=== PATIENT | male | born 1965 | race Caucasian/White ===

== ENCOUNTER 2017-04-21 11:38 | Emergency (ER) | payer SELFPAY ==
[2017-04-21 12:34] LABS: A/G RATIO 1.3; ALBUMIN 4.3 g/dL (3.5-5.0); ALKALINE PHOSPHATASE 81 U/L (38-126); ALT 31 U/L (21-72); AST 28 U/L (17-59); BILIRUBIN, TOTAL 1.1 mg/dL (0.2-1.3); BLOOD UREA NITROGEN 18 mg/dL (9-20); CALCIUM 9.3 mg/dL (8.4-10.2); CHLORIDE 105 mmol/L (98-107); EST GLOMERULAR FILTRATION RATE > 60 mL/min; GLUCOSE 115 mg/dL (70-100); POTASSIUM 3.7 mmol/L (3.5-5.1); SODIUM 136 mmol/L (137-145); TOTAL PROTEIN 7.5 g/dL (6.3-8.2)
[2017-04-21 12:50] LABS: HEMATOCRIT 40.8 % (42.0-54.0); HEMOGLOBIN 14.1 g/dL (14.0-18.0); MEAN CELL VOLUME 91.8 fL (80.0-100.0); MEAN CORPUS. HGB CONCENTRATION 34.7 g/dL (32.0-36.0); MEAN CORPUSCULAR HEMOGLOBIN 31.8 pg (29.0-35.0); MEAN PLATELET VOLUME 7.4 fL (7.4-10.4); PLATELET COUNT 273 X 10^3uL (130-440); RED BLOOD COUNT 4.44 X 10^6uL (4.20-6.10); RED CELL DISTRIBUTION WIDTH 12.3 % (11.5-14.5); WHITE BLOOD COUNT 12.6 X 10^3uL (3.9-10.7)
[2017-04-21 12:51] LABS: BAND% (Manual) 2 % (0.0-1.0); LYMPHOCYTE % (Manual) 22 % (20.0-40.0); MONOCYTE % (Manual) 8 % (2.0-10.0); NEUTROPHIL % (Manual) 68 % (54.0-75.0)
[2017-04-21 12:52] LABS: PLATELET ESTIMATE ADEQUATE
--- NOTE | 2017-04-21 13:00 | RADIOLOGY REPORT ---
HISTORY: Dizziness, fever. COMPARISON: None. FINDINGS: 2 views of the chest obtained. There is no consolidation. There is no pleural effusion. There is no pneumothorax. The cardiomediastinal silhouette is normal. There is no abnormality of the pulmonar y vessels. There is no focal lung parenchymal nodule. There is no bone lesion. IMPRESSION: Normal chest. Final Electronic Signature: This report was electronically signed by Triston Arce MD on 04/21/2017 12:58 PM. nam /
[2017-04-21] MEDS ORDERED: AMPICILLIN/SULBACTAM 3 GM/10 ML VIAL ONE (13:43)
[2017-04-21] MEDS ORDERED: NORMAL SALINE 250 ML IV ONE (13:44)
--- NOTE | 2017-04-21 15:32 | ER PHYSICIAN DOCUMENTATION ---
Physician Documentation [facility] Name:Pollo Marquez Age:51 yrs Sex:Male :1965 Arrival Date:04/21/2017 Time:11:38 Bed3 Private MD: Alexys Christy Disposition: 04/23 05:16 Chart complete. tl1 Disposition: 04/21/17 15:23 Discharged to Home/Self Care. Impression: Cellulitis of Hand. - Condition is Good. - Discharge Instructions: CELLULITIS. - Prescriptions for Augmentin XR 1,000- 62.5 mg Oral Tablet Sustained Release 12 hr - take 2 tablet by ORAL route every 12 hours for 10 days; 40 tablet. - Medical Reconciliation form form. - Follow up: Wesly Mendes DO, Pranav Monaco MD; When: 1 - 2 days; Reason: Recheck today's complaints, Continuance of care. - Problem is new. - Symptoms are unchanged. HPI: 04/21 11:56 This 51 yrs old Male presents to ER via Private Vehicle with complaints of tl1 Dizziness. 12:00 1 day h/o malaise, fatigue, chills and thirst, with some lightheadedness on standing. tl1 He initially had no other complaints. Later in his ED stay when Maddy Td noted his left hand was red, swollen and tender, while drawing his blood and starting an IV, he remembered that about 7 days ago he was bitten by a dog, but he didn't notice that the skin was broken. He subsequently sustained an abrasion to the dorsum of that hand 2 or 3 days ago but he thinks the redness and swelling started prior to that.. Historical: - Allergies: Septra; - Home Meds: 1. None - PMHx: None; - PSHx: None; - Tetanus: < 10 years. - Ebola Screening: : Patient negative for fever greater than or equal to 101.5 degrees Fahrenheit, and additional compatible Ebola Virus Disease symptoms. - Immunization history: Pneumococcal vaccine is up to date, Flu Vaccine None. - Social history: Smoking status: Patient uses tobacco products, current every day smoker. ROS: 12:00 ENT: Negative for nasal discharge, rhinorrhea, sinus congestion, sinus pain, sore tl1 throat, dental pain. 12:00 Cardiovascular: Negative for chest pain, edema, orthopnea, palpitations. 12:00 Respiratory: Negative for cough, dyspnea on exertion, hemoptysis, pleurisy, shortness of breath, sputum production, wheezing. 12:00 Abdomen/GI: Negative for abdominal pain, nausea, vomiting, diarrhea, hematemesis, black/tarry stool, rectal bleeding. 12:00 : Negative for urinary symptoms. 12:00 Skin: Positive for cellulitis, erythema, swelling, Left hand, Negative for rash. 12:00 Neuro: Negative for gait disturbance, headache, speech changes, syncope, near syncope, weakness. Exam: 12:00 Constitutional: This is a well developed, well nourished patient who is awake, alert, tl1 and in no acute distress. Head/Face: Normocephalic, atraumatic. ENT: Nares patent. No nasal discharge, no septal abnormalities noted. Tympanic membranes are normal and external auditory canals are clear. Oropharynx with no redness, swelling, or masses, exudates, or evidence of obstruction, uvula midline. Mucous membranes moist. Neck: Trachea midline, no thyromegaly or masses palpated, and no cervical lymphadenopathy. Supple, full range of motion without nuchal rigidity, or vertebral point tenderness. No Meningismus. Cardiovascular: Regular rate and rhythm with a normal S1 and S2. No gallops, murmurs, or rubs. Normal PMI, no JVD. No pulse deficits. Respiratory: Lungs have equal breath sounds bilaterally, clear to auscultation and percussion. No rales, rhonchi or wheezes noted. No increased work of breathing, no retractions or nasal flaring. 12:00 Abdomen/GI: Soft, non-tender, with normal bowel sounds. No distension or tympany. No tl1 guarding or rebound. No evidence of tenderness throughout. 12:00 Back: CVA tenderness, is absent. 12:00 Musculoskeletal/extremity: Extremities: grossly normal except: noted in the left hand: erythema, swelling, tenderness, ROM: intact in all extremities, full active range of motion, with minimal discomfrot. 12:00 Neuro: Orientation: is normal, Mentation: is normal, Memory: is normal, Cranial nerves: grossly normal, Cerebellar function: not tested, Gait: is steady, at a normal pace, without difficulty, appropriate for age. Vital Signs: 11:45 BP 152 / 86; Pulse 75; Resp 17; Temp 98.2(O); Pulse Ox 93% on R/A; Weight 102.06 kg; rh Height 6 ft. 3 in. (190.50 cm); Pain 8/10; 12:01 BP 142 / 89 Supine; Pulse 80; Resp 16; lc 12:02 BP 163 / 102 Standing; Pulse 81; Resp 16; lc 12:43 Pulse 63; Resp 16; lc 15:31 BP 137 / 82; Pulse 66; Resp 15; Pulse Ox 95% on R/A; Pain 0/10; rh 11:45 Body Mass Index 28.12 (102.06 kg, 190.50 cm) rh MDM: 11:56 Patient medically screened. tl1 12:49 ECG:. tl1 14:00 Data reviewed: vital signs, nurses notes, lab test result(s), CBC, radiologic studies, tl1 plain films, and as a result, I will discharge patient. Test interpretation: by ED physician or midlevel provider: plain radiologic studies. Counseling: I had a detailed discussion with the patient and/or guardian regarding: the historical points, exam findings, and any diagnostic results supporting the discharge/admit diagnosis, lab results, the need for outpatient follow up, to return to the emergency department if symptoms worsen or persist or if there are any questions or concerns that arise at home. Response to treatment: There is no appreciated change of the patient's symptoms at this time, and as a result, I will discharge patient. Physician consultation: Wesly Mendes DO was called at 14:30, was contacted at 14:30, regarding outpatient follow-up, and will see patient in office, tomorrow. 04/21 12:42 Order name: COMPREHENSIVE METABOLIC PANEL; Complete Time: 04:55 EDMS 04/23 04:54 Interpretation: Normal. tl1 04/21 12:43 Order name: BNP,NT-PRO; Complete Time: 04:55 EDMS 04/23 04:54 Interpretation: Abnormal: BNP,NT-PRO 262. tl1 04/21 12:51 Order name: CBC WITHOUT A DIFFERENTIAL; Complete Time: 04:55 EDMS 04/23 04:54 Interpretation: WHITE BLOOD COUNT 12.6; HEMOGLOBIN 14.1; HEMATOCRIT 40.8; PLATELET tl1 COUNT 273. 04/21 12:53 Order name: MANUAL DIFFERENTIAL; Complete Time: 04:55 EDMS 04/23 04:54 Interpretation: NEUTROPHIL % (Manual) 68; BAND% (Manual) 2; LYMPHOCYTE % (Manual) 22. tl1 04/21 13:01 Order name: CXR 2V [id number]; Complete Time: 04:55 EDMS 04/23 04:54 Interpretation: Normal per my read, and the radiologist's. tl1 04/21 12:10 Order name: EKG - 12 Lead; Complete Time: 12:20 tl1 04/23 04:55 Interpretation: Normal: SEE NOTE. tl1 EC:13 Rate is 58 beats/min. Rhythm is regular. QRS [place] is Normal. OK interval is shortened tl1 at 109 msec. QRS interval is prolonged at 116 msec. QT interval is normal at 442 msec. No Q waves. T waves are Normal. No ST changes noted. Clinical impression: NSR with short OK interval, and incomplete RBBB. Interpreted by me. Reviewed by me. Dispensed Medications: 13:30 Drug: Unasyn 3 grams; Route: IVPB; Infused Over: 30 mins; Site: left antecubital; 15:00 Follow up: IV Status: Completed infusion; IV Intake: 250ml Signatures: Maddy Appiah RN RN Alexys Guzman MD MD 1 Ora Nichols
--- NOTE | 2017-04-21 15:32 | ER NURSING DOCUMENTATION ---
Nurse's Notes [facility] Name:Pollo Marquez Age:51 yrs Sex:Male :1965 Arrival Date:04/21/2017 Time:11:38 Bed3 Private MD: Diagnosis:Cellulitis of Hand Presentation: 04/21 11:42 Acuity: TERRANCE 3 rh 11:45 Presenting complaint: Patient states: C/O CHILLS, INCREASED THIRST, BODY ACHES AND SL lc CHRISTENSEN FOR LAST DAY. NO ST, COUGH, RASH. HAS BEEN DOING A LOT OF LIFTING LATELY WITH MOVING. Transition of care: Home. 11:45 Method Of Arrival: Private Vehicle Triage Assessment: 11:47 General: Appears in no apparent distress. Pain: Complains of pain in BODY ACHES Pain At worst was 8 out of 10 on a pain scale. Quality of pain is described as aching. Neuro: Level of Consciousness is awake, alert, Oriented to person, place, time, event. Respiratory: Airway is patent Respiratory effort is even, unlabored, Respiratory pattern is regular, symmetrical. Derm: Skin is pink, warm & dry. Musculoskeletal: Circulation, motion, and sensation intact Capillary refill < 3 seconds Range of motion intact in all extremities. 11:49 General: Behavior is cooperative. Historical: - Allergies: Septra; - Home Meds: 1. None - PMHx: None; - PSHx: None; - Tetanus: < 10 years. - Ebola Screening: : Patient negative for fever greater than or equal to 101.5 degrees Fahrenheit, and additional compatible Ebola Virus Disease symptoms. - Immunization history: Pneumococcal vaccine is up to date, Flu Vaccine None. - Social history: Smoking status: Patient uses tobacco products, current every day smoker. Screenin:49 Infectious Disease Risk None. Abuse screen: Denies threats or abuse. Denies injuries lc from another. Nutritional screening: No deficits noted. Assessment: 11:48 See Triage Assessment done by same RN. Vital Signs: 11:45 BP 152 / 86; Pulse 75; Resp 17; Temp 98.2(O); Pulse Ox 93% on R/A; Weight 102.06 kg; rh Height 6 ft. 3 in. (190.50 cm); Pain 8/10; 12:01 BP 142 / 89 Supine; Pulse 80; Resp 16; lc 12:02 BP 163 / 102 Standing; Pulse 81; Resp 16; lc 12:43 Pulse 63; Resp 16; lc 15:31 BP 137 / 82; Pulse 66; Resp 15; Pulse Ox 95% on R/A; Pain 0/10; rh 11:45 Body Mass Index 28.12 (102.06 kg, 190.50 cm) ED Course: 11:40 Patient arrived in ED. cj 11:42 Triage completed. rh 11:45 Maddy Appiah RN is Primary Nurse. lc 11:49 Valuables Remains with patient Patient has correct armband on for positive lc identification. Placed in gown. Bed in low position. Call light in reach. 11:56 Alexys Vela MD is Attending Physician. tl1 12:13 EKG done. (by ED staff). Reviewed by Alexys Vela MD. rh 12:17 Patient moved to radiology. harmony 12:21 Labs drawn. (by ED staff). Sent per order to lab. Inserted peripheral IV: 20 gauge in lc left antecubital area and blood collected. 12:24 Patient moved back from radiology. pm1 15:17 Wesly Mendes DO, Pranav Monaco MD is Referral Physician. tl1 Administered Medications: 13:30 Drug: Unasyn 3 grams; Route: IVPB; Infused Over: 30 mins; Site: left antecubital; lc 15:00 Follow up: IV Status: Completed infusion; IV Intake: 250ml lc Intake: 15:00 IV: 250ml; Total: 250ml. lc Outcome: 15:23 Discharge ordered by . tl1 15:31 Discharged to home ambulatory. 15:31 Condition: improved 15:31 Discharge Assessment: Patient awake, alert and oriented x 3. No cognitive and/or functional deficits noted. Patient verbalized understanding of disposition instructions. 15:31 Discharge instructions given to patient, Instructed on discharge instructions, follow up and referral plans. Demonstrated understanding of instructions, medications, Prescriptions given X 1. 15:31 IV D/Truong 15:31 Patient left the ED. 04/22 17:27 Discharge F/U Call: Spoke with: patient. other: Name: pt is feeling better. pt is st still waiting for the full abx he picked up a few but the pharmacy is suppose to call him today when the rest are available. pt has no questions or concerns. Signatures: Trudy Dietz, RN RN Maddy Flor RN RN jos [place], [place] pm1 Alexys Vela MD MD tl1 Simone, Leena Spaulding
== END 2017-04-21 15:32 | disposition home or self-care (01) ==
LOC: ER 11:38
DX: R42 Dizziness and giddiness (principal); L03.114 Cellulitis of left upper limb; I45.19 Other right bundle-branch block; F17.210 Nicotine dependence, cigarettes, uncomplicated
CPT/HCPCS: 71020; 80053; 83880; 85007; 85027; 93005; 96365; 99284; J0295; J7050

== ENCOUNTER 2017-05-16 19:03 | Emergency (ER) | payer OTHER ==
--- NOTE | 2017-05-16 20:33 | ER PHYSICIAN DOCUMENTATION ---
Physician Documentation [facility] Name:Pollo Marquez Age:51 yrs Sex:Male :1965 Arrival Date:05/16/2017 Time:19:03 Bed3 Private MD:Kelechi Alves ED, John Disposition: 05/16/17 20:16 Discharged to Home/Self Care. Impression: Dog Bite. - Condition is Good. - Discharge Instructions: DOG BITE. - Prescriptions for Doxycycline Hyclate 100 mg Oral Tablet - take 1 tablet by ORAL route every 12 hours; 20 tablet. - Medical Reconciliation form form. - Follow up: Kelechi Alves; When: As needed; Reason: Continuance of care. - Problem is new. - Symptoms have improved. HPI: 05/16 20:54 This 51 yrs old Male presents to ER via Walk In with complaints of Dog Bite - jm FACE AND HAND. 20:54 The patient was bitten on the neck and right sternocleidomastoid, by a dog, as a result jm of being attacked by the animal. Onset: The symptom(s)/episode began/occurred just prior to arrival. Animal information: Animal's vaccinations are up to date. Associated signs and symptoms: Pertinent positives: tenderness, small lacs. The patient has not experienced similar symptoms in the past. Pt's dog is 15 years old and, pt was worried it was about to get run over, so he quickly picked it up off the ground and it freaked out and bit him in the R neck area. Pt just has 3 small lacs, but came in for abx. . Historical: - Allergies: Septra; - Home Meds: 1. None - PMHx: NONE; Cellulitis of Hand (April 21, 2017); - PSHx: NONE; - Tetanus: < 10 years. - Ebola Screening: : Patient negative for fever greater than or equal to 101.5 degrees Fahrenheit, and additional compatible Ebola Virus Disease symptoms. Patient denies exposure to infectious person. Patient denies travel to an Ebola-affected area in the 21 days before illness onset. No symptoms or risks identified at this time. . - Immunization history: Flu Vaccine < 1 year. - Social history: Smoking status: Patient states was never smoker of tobacco. ROS: 20:58 Skin: Positive for laceration(s). betzaida Exam: 20:58 Constitutional: The patient appears alert, awake. 20:58 Skin: cellulitis, is not appreciated, injury, laceration(s), the wound is approximately .5 cm(s), with a depth of .5 cm(s), of the #3 of them to R mandibular jaw/neck area- all small. . 20:58 Psych: Behavior/mood is pleasant, cooperative. Vital Signs: 19:09 BP 130 / 97; Pulse 78; Resp 16; Temp 98.9; Pulse Ox 96% ; Weight 81.65 kg; Height 6 ft. jt 3 in. (190.50 cm); Pain 8/10; 19:09 Body Mass Index 22.50 (81.65 kg, 190.50 cm) jt MDM: 19:07 Patient medically screened. 20:59 Differential diagnosis: superficial laceration. Rabies Status: Rabies immunization is not indicated. Data reviewed: vital signs, nurses notes, and as a result, I will discharge patient, administer antibiotics. Counseling: I had a detailed discussion with the patient and/or guardian regarding: the historical points, exam findings, and any diagnostic results supporting the discharge/admit diagnosis. 20:59 ED course: steri-stripped by Tech. betzaida Dispensed Medications: 20:26 Drug: Doxycycline 100 mg; Route: PO; bw2 20:26 Follow up: Response: No adverse reaction bw2 20:26 Drug: Percocet Tablet (5 mg-325 mg) 6 tabs; Route: PO; bw2 20:26 Follow up: Response: Pharmacy closed - take home med pack bw2 Signatures: Jass Goins MD MD jm Wisely, Beth bw2
--- NOTE | 2017-05-16 20:33 | ER NURSING DOCUMENTATION ---
Nurse's Notes [facility] Name:Pollo Marquez Age:51 yrs Sex:Male :1965 Arrival Date:05/16/2017 Time:19:03 Bed3 Private MD:Kelechi Alves Diagnosis:Dog Bite Presentation: 05/16 19:06 Acuity: TERRANCE 3 bw2 19:09 Presenting complaint: Patient states: he was bite by his own dog. bite osborne to left bw2 side of face and left hand. pt states dog is up to date on all shots. Transition of care: patient was not received from another setting of care. 19:09 Method Of Arrival: Walk In [facility] Triage Assessment: 19:11 Bite description: bite sustained to right submandibular area and right bw2 sternocleidomastoid by a dog, animal information: Animal control has been notified. General: Appears in no apparent distress, Behavior is anxious, appropriate for age. Pain: Complains of pain in right submandibular area and right sternocleidomastoid. Neuro: No deficits noted. 20:32 Bite description: animal information: vaccination(s) is current. 2 Historical: - Allergies: Septra; - Home Meds: 1. None - PMHx: NONE; Cellulitis of Hand (April 21, 2017); - PSHx: NONE; - Tetanus: < 10 years. - Ebola Screening: : Patient negative for fever greater than or equal to 101.5 degrees Fahrenheit, and additional compatible Ebola Virus Disease symptoms. Patient denies exposure to infectious person. Patient denies travel to an Ebola-affected area in the 21 days before illness onset. No symptoms or risks identified at this time. . - Immunization history: Flu Vaccine < 1 year. - Social history: Smoking status: Patient states was never smoker of tobacco. Screenin:13 Infectious Disease Risk None. Abuse screen: Denies threats or abuse. Nutritional 2 screening: No deficits noted. Assessment: 19:13 See Triage Assessment done by same RN. bw2 19:13 Derm: Skin is healthy with good turgor, Skin is pink, warm & dry. 2 Vital Signs: 19:09 BP 130 / 97; Pulse 78; Resp 16; Temp 98.9; Pulse Ox 96% ; Weight 81.65 kg; Height 6 ft. jt 3 in. (190.50 cm); Pain 8/10; 19:09 Body Mass Index 22.50 (81.65 kg, 190.50 cm) jt ED Course: 19:05 Patient arrived in ED. ma1 19:05 Kelechi Alves is Private Physician. ma1 19:05 Monika Melendrez is Primary Nurse. bw2 19:06 Triage completed. bw2 19:07 Jass Goins MD is Attending Physician. 19:13 Valuables Remains with patient Patient has correct armband on for positive bw2 identification. Side rails up X2. 19:19 Notified police department of dog bite. bw2 20:15 Kelechi Alves is Referral Physician. betzaida 20:31 Wound care to puncture located on neck and right sternocleidomastoid and right bw2 submandibular area was Irrigation Patient tolerated well. Administered Medications: 20:26 Drug: Doxycycline 100 mg; Route: PO; bw2 20:26 Follow up: Response: No adverse reaction bw2 20:26 Drug: Percocet Tablet (5 mg-325 mg) 6 tabs; Route: PO; bw2 20:26 Follow up: Response: Pharmacy closed - take home med pack bw2 Outcome: 20:16 Discharge ordered by . 20:32 Discharged to home ambulatory. bw2 20:32 Condition: good 20:32 Discharge Assessment: Patient awake, alert and oriented x 3. No cognitive and/or functional deficits noted. Patient verbalized understanding of disposition instructions. 20:32 Discharge instructions given to patient, Instructed on discharge instructions, follow up and referral plans. medication usage, Demonstrated understanding of instructions, medications, Prescriptions given X 1. 20:32 Patient left the ED. bw2 05/17 14:33 Discharge F/U Call: Unable to reach: no answer st Signatures: Trudy Dietz, RN Jass Kramer MD MD jm Tennant, Joanne jt Wisely, Beth bw2 PhilipYary moniqueissa ma1
[2017-05-16] MEDS ORDERED: DOXYCYCLINE 100 MG CAPSULE PO ONE (20:34)
[2017-05-16] MEDS ORDERED: oxyCODONE/APAP 5/325 MG PREPAC 1 TAB TABLET PO ONE (20:38)
== END 2017-05-16 20:33 | disposition home or self-care (01) ==
LOC: ER 19:03
DX: S10.87XA Other superficial bite of other specified part of neck, initial encounter (principal); W54.0XXA Bitten by dog, initial encounter; Y92.89 Other specified places as the place of occurrence of the external cause; Y93.K9 Activity, other involving animal care
CPT/HCPCS: 99283

== ENCOUNTER 2017-05-18 11:18 | Emergency (ER) | payer OTHER ==
[2017-05-18] MEDS ORDERED: AMPICILLIN/SULBACTAM 3 GM/10 ML VIAL ONE (12:05)
[2017-05-18] MEDS ORDERED: KETOROLAC TROMETHAMINE 30 MG/ML VIAL ONE (12:06)
[2017-05-18] MEDS ORDERED: NORMAL SALINE 250 ML IV ONE (12:06)
--- NOTE | 2017-05-18 13:02 | ER NURSING DOCUMENTATION ---
Nurse's Notes [facility] Name:Pollo Marquez Age:51 yrs Sex:Male :1965 Arrival Date:05/18/2017 Time:11:18 Bed1 Private MD: Diagnosis:Cellulitis of Neck Presentation: 05/18 11:24 Acuity: TERRANCE 4 11:27 Presenting complaint: Patient states: DOG BITE TO NECK 3 DAYS AGO. STERISTRIPPED AND lc BUT ON ABX AND GIVEN PERCOCET. STILL C/O PAIN AND SWELLING TO AREA, NO REDNESS OR DRAINAGE. Transition of care: Home. Notified ED Physician of patient's arrival and CC. 11:27 Method Of Arrival: Walk In Triage Assessment: 11:34 Bite description: SEE PREVIOUS RECORD. General: Appears in no apparent distress, lc uncomfortable, Behavior is cooperative. Pain: Complains of pain in right submandibular area Pain currently is 9 out of 10 on a pain scale. At worst was 10 out of 10 on a pain scale. Quality of pain is described as throbbing. Neuro: Level of Consciousness is awake, alert, Oriented to person, place, time, event. 11:36 Musculoskeletal: Circulation, motion, and sensation intact. Injury Description: lc Puncture is WELL HEALED, NO RED OR STREAKING. 12:59 Bite description: by a dog, animal information: see previous chart. Historical: - Allergies: Septra; - Home Meds: 1. None - PMHx: NONE; Cellulitis of Hand (April 21, 2017); Dog Bite (May 16, 2017); - PSHx: NONE; - Tetanus: < 10 years. - Ebola Screening: : Patient denies travel to an Ebola-affected area in the 21 days before illness onset. No symptoms or risks identified at this time. . - Immunization history: Flu Vaccine >1 year. - Social history: Smoking status: Patient uses tobacco products, current every day smoker. Screenin:37 Infectious Disease Risk None. Abuse screen: Denies threats or abuse. Denies injuries lc from another. Nutritional screening: No deficits noted. Assessment: 11:37 See Triage Assessment done by same RN. 12:17 Reassessment: Patient appears in no apparent distress at this time. NO S/S OF RX, IV lc ABX INFUSING WELL.. Vital Signs: 11:24 BP 135 / 82 LA Sitting (auto/reg); Pulse 80 LA; Resp 16 S; Temp 98.1(O); Pulse Ox 94% em3 on R/A; Weight 102.06 kg (R); Height 6 ft. 3 in. (190.50 cm) (R); Pain 10/10; 12:58 Resp 16; Pain 3/10; lc 11:24 Body Mass Index 28.12 (102.06 kg, 190.50 cm) em3 ED Course: 11:20 Patient arrived in ED. em3 11:24 Triage completed. lc 11:25 Valuables Remains with patient Patient has correct armband on for positive em3 identification. Bed in low position. Call light in reach. 11:29 Alexys Vela MD is Attending Physician. tl1 11:38 Maddy Appiah, SAVANNAH is Primary Nurse. lc 11:44 Jon Ramírez MD is Referral Physician. tl1 11:45 Missed attempts: 22 gauge X 1 in left antecubital area, Bleeding controlled, band aid em3 applied, catheter tip intact. 11:51 Inserted saline lock: 22 gauge in left hand. em3 Administered Medications: 11:58 Drug: Toradol 15 mg; Route: IVP; Infused Over: 2 mins; Site: left hand; lc 12:57 Follow up: Response: Pain is decreased lc 12:00 Drug: Unasyn 3 grams; Route: IVPB; Infused Over: 1 hrs; Site: left hand; Delivery: Pump;lc 12:57 Follow up: Response: No adverse reaction; IV Status: Completed infusion; IV Intake: lc 250ml Intake: 12:57 IV: 250ml; Total: 250ml. Outcome: 11:42 Discharge ordered by . tl1 12:58 Discharged to home ambulatory. lc 12:58 Condition: stable 12:58 Discharge Assessment: Patient awake, alert and oriented x 3. No cognitive and/or functional deficits noted. Patient verbalized understanding of disposition instructions. 12:58 Discharge instructions given to patient, Instructed on discharge instructions, follow up and referral plans. medication usage, Demonstrated understanding of instructions, medications, Prescriptions given X 2. 12:58 IV D/Truong 13:00 Recheck visit only other but IV ABX given lc 13:01 Patient left the ED. lc 05/19 10:39 Discharge F/U Call: Spoke with: patient. Are you having any pain? no. Have you filled sj your prescriptions? yes. Did your discharge instructions answer all of your questions? yes Have you made a f/u appointment? yes Signatures: Maddy Appiah RN RN lc Meiklejohn, Eric 3 Alexys Vela MD MD tl1 Lali Corea
--- NOTE | 2017-05-20 13:01 | ER PHYSICIAN DOCUMENTATION ---
Physician Documentation [facility] Name:Pollo Marquez Age:51 yrs Sex:Male :1965 Arrival Date:05/18/2017 Time:11:18 Bed1 Private MD: Alexys Christy Disposition: 05/19 11:34 Chart complete. tl1 Disposition: 05/18/17 11:42 Discharged to Home/Self Care. Impression: Cellulitis of Neck. - Condition is Good. - Discharge Instructions: CELLULITIS. - Prescriptions for Augmentin XR 1,000- 62.5 mg Oral Tablet Sustained Release 12 hr - take 2 tablet by ORAL route every 12 hours for 10 days; 40 tablet. Percocet 5- 325 mg Oral - take 1 tablet by ORAL route every 6 hours As needed; 15 tablet. - Medical Reconciliation form form. - Follow up: Jon Ramírez MD; When: 2 - 3 days; Reason: Recheck today's complaints, Continuance of care. - Problem is new. - Symptoms have improved. HPI: 05/18 11:20 This 51 yrs old Male presents to ER via Walk In with complaints of Animal tl1 Bite. 11:20 The patient was bitten on the right mandible, by a dog, he was picking up his old and tl1 very arthritic dog, while it was frightened, and it bit him defensively 3 days ago. He was seen here and started on doxycycline after his wounds were steristripped. He is here now because he has increasing pain and some increased swelling at the sites of his puncture osborne. Historical: - Allergies: Septra; - Home Meds: 1. None - PMHx: NONE; Cellulitis of Hand (April 21, 2017); Dog Bite (May 16, 2017); - PSHx: NONE; - Tetanus: < 10 years. - Ebola Screening: : Patient denies travel to an Ebola-affected area in the 21 days before illness onset. No symptoms or risks identified at this time. . - Immunization history: Flu Vaccine >1 year. - Social history: Smoking status: Patient uses tobacco products, current every day smoker. ROS: 12:00 Skin: Positive for swelling. tl1 12:00 All other systems are negative. Exam: 12:00 Constitutional: This is a well developed, well nourished patient who is awake, alert, tl1 and in no acute distress. 12:00 Head/Face: Normocephalic, atraumatic. tl1 12:00 Head/face: right inframandibular/submental area around one of the bite punctures is mildly red , swollen and tender. No fluctuance or induration. Another puncture in the right submandibular area is also slightly red, tender and inflamed. 12:00 Eyes: Exam is negative for acute changes. 12:00 ENT: Exam is negative for acute changes. 12:00 Neck: see above. 12:00 Cardiovascular: Rate: normal. 12:00 Respiratory: Respirations: normal. 12:00 Skin: see above. Vital Signs: 11:24 BP 135 / 82 LA Sitting (auto/reg); Pulse 80 LA; Resp 16 S; Temp 98.1(O); Pulse Ox 94% em3 on R/A; Weight 102.06 kg (R); Height 6 ft. 3 in. (190.50 cm) (R); Pain 10/10; 12:58 Resp 16; Pain 3/10; lc 11:24 Body Mass Index 28.12 (102.06 kg, 190.50 cm) em3 MDM: 11:29 Patient medically screened. tl1 12:00 Rabies Status: Rabies immunization is not indicated. Data reviewed: vital signs, nurses tl1 notes, old medical records, and as a result, I will discharge patient. Counseling: I had a detailed discussion with the patient and/or guardian regarding: the historical points, exam findings, and any diagnostic results supporting the discharge/admit diagnosis, the need for outpatient follow up, to return to the emergency department if symptoms worsen or persist or if there are any questions or concerns that arise at home. Special discussion: Augmentin may be a better choice,if in fact, these bites are infected. will add that and have him f/u in 2-3 days. return here sooner if worse.. Dispensed Medications: 11:58 Drug: Toradol 15 mg; Route: IVP; Infused Over: 2 mins; Site: left hand; lc 12:57 Follow up: Response: Pain is decreased lc 12:00 Drug: Unasyn 3 grams; Route: IVPB; Infused Over: 1 hrs; Site: left hand; Delivery: Pump;lc 12:57 Follow up: Response: No adverse reaction; IV Status: Completed infusion; IV Intake: lc 250ml Signatures: Maddy Appiah, SAVANNAH RN Alexys Guzman MD MD tl1
== END 2017-05-18 13:02 | disposition home or self-care (01) ==
LOC: ER 11:18
DX: L03.221 Cellulitis of neck (principal); T79.8XXA Other early complications of trauma, initial encounter; S10.8 Superficial injury of other specified parts of neck
CPT/HCPCS: 96365; 96375; 99281; J0295; J1885; J7050